=== PATIENT | male | born 1990 | race Caucasian/White ===

== ENCOUNTER 2016-11-16 10:38 | Emergency (ER) | payer BC ==
[~2016-11-16] VITALS: Ht 167.6 cm; Wt 73.5 kg
[~2016-11-16 10:38] MED LIST: HYDR-3498 PO; IBUP800T25 PO
[2016-11-16 10:42] VITALS: Ht 167.6 cm; Wt 73.5 kg
[2016-11-16] MEDS ORDERED: BEN25 PO (10:53)
[2016-11-16] MEDS ORDERED: PRED20TA PO (10:53)
[2016-11-16] MEDS ORDERED: CEPH-443 PO (10:53)
[2016-11-16] MEDS ORDERED: DIPHENHYDRAMINE 25 MG CAP PO ONE (11:00)
[2016-11-16] MEDS ORDERED: predniSONE 20 MG TAB PO ONE (11:00)
[2016-11-16] MEDS ORDERED: CEPHALEXIN 500 MG CAP PO ONE (11:00)
--- NOTE | 2016-11-16 11:01 | ERD ---
ER Documentation Chief Complaint Date/Time DATE: 11/16/16 TIME: 10:57 Chief Complaint bee sting HPI 26 yo male comes in with bee sting on the left for that occurred 2 days ago comes in with swelling and redness around the left eye. Patient states he was sent 2 days ago, he has been seen in the past without any complications. He denies any pain, blurred vision or redness to the eye or drainage to the eye. Denies trauma. No fevers or chills. He denies shortness of breath, chest pain. ROS All systems reviewed and are negative except as per history of present illness. Medications Home Meds Active Scripts Prednisone* (Prednisone*) 20 Mg Tab, 40 MG PO DAILY for 4 Days, TAB Prov:ABDULLAHI LUCIANO PA-C 11/16/16 Cephalexin* (Keflex*) 500 Mg Capsule, 500 MG PO QID for 5 Days, CAP Prov:ABDULLAHI LUCIANO PA-C 11/16/16 Diphenhydramine Hcl* (Benadryl*) 25 Mg Cap, 25 MG PO Q6, #30 CAP Prov:ABDULLAHI LUCIANO PA-C 11/16/16 Hydrocodone Bit-Acetaminophen* (Pray*) 5-325 Mg Tab, 1 TAB PO Q6 Y for SEVERE PAIN LEVEL 7-10, #7 TAB Prov:LORRAINE SAXENA [employer]ICER 02/27/15 Ibuprofen* (Motrin*) 800 Mg Tab, 800 MG PO Q6H Y for PAIN AND OR ELEVATED TEMP, #30 TAB Prov:LORRAINE SAXENA. [employer]ATIONS OFFICER 02/27/15 Reported Medications [None] No Conflict Check 08/24/09 Allergies Allergies: Coded Allergies: No Known Allergy (Verified , 05/27/11) PMhx/Soc History of Surgery: No Anesthesia Reaction: No Hx Neurological Disorder: No Hx Respiratory Disorders: Yes (Asthma) Hx Cardiac Disorders: No Hx Psychiatric Problems: No Hx Miscellaneous Medical Probl: No Hx Alcohol Use: Yes Hx Substance Use: Yes (marijuana and cocaine) Hx Tobacco Use: Yes Smoking Status: Current some day smoker Physical Exam Vitals Vital Signs Date Time Temp Pulse Resp B/P Pulse Ox O2 Delivery O2 Flow Rate FiO2 11/16/16 10:42 97.9 104 20 137/64 96 Physical Exam General: Well-developed, well-nourished. The patient appears in no acute distress. HEENT: Head is normocephalic, atraumatic. No scleral icterus. No injection to the eyes, eyes are Arpit, extraocular movements intact without any pain, no photophobia on examination. There is swelling above and below the eye, and the eyelids, there is erythema, there is no tenderness to palpation, no fluctuance. There is a stating that can be seen above the left eyebrow. No cellulitis. No vesicles. Neck: Supple. Nontender. Lungs: Clear to auscultation. Normal air movement. Heart: Regular rate and rhythm. S1 and S2 are normal. No murmurs, gallops, or rubs. Abdomen: Nontender. Extremities: No clubbing or cyanosis. Normal pulses. Moving extremities x 4. No weakness. Neurologic: Alert and oriented 3. No focal deficits. Skin: Normal turgor. No rash or lesions. Results 24 hrs Current Medications Medications (Trade) Dose Ordered Sig/Dulce Route PRN Reason Start Time Stop Time Status Last Admin Dose Admin Prednisone (Prednisone) 40 mg ONCE ONCE PO 11/16/16 11:00 11/16/16 11:01 Diphenhydramine HCl (Benadryl) 25 mg ONCE ONCE PO 11/16/16 11:00 11/16/16 11:01 Cephalexin (Keflex) 500 mg ONCE ONCE PO 11/16/16 11:00 11/16/16 11:01 Procedures/MDM 26-year-old male comes emergency with a bee sting of the left, there is some periorbital swelling however no pain, no fluctuance. No signs of orbital periorbital cellulitis. This is likely reactive from the sting. However due to the location erythema, this may be an early infection patient will be treated with Keflex. He was given prednisone as well as Benadryl emergency department is to continue at home. He is to recheck the area in 2 days. Other differentials include an orbital blowout fracture, conjunctivitis, entrapment, anaphylaxis, however unlikely. Departure Diagnosis: Primary Impression: Bee sting Condition: Good Patient Instructions: Insect Bites and Stings Additional Instructions: Call your primary care doctor TOMORROW for an appointment during the next 1-2 days.See the doctor sooner or return here if your condition worsens before your appointment time. ABDULLAHI LUCIANO PA-C Nov 16, 2016 11:01
[2016-11-16 11:06] VITALS: BP 118/66; PULSE 97; RESP 19; TEMP 98.3
== END 2016-11-16 11:08 | disposition home or self-care (01) ==
LOC: FTE 10:38
DX: T63.441A Toxic effect of venom of bees, accidental (unintentional), initial encounter (principal); J45.909 Unspecified asthma, uncomplicated; F17.210 Nicotine dependence, cigarettes, uncomplicated
CPT/HCPCS: J7512; Z7502; Z7610; 99284

== ENCOUNTER 2018-06-30 09:44 | Emergency (ER) | payer BC ==
[~2018-06-30] VITALS: Ht 167.6 cm; Wt 65.0 kg
[~2018-06-30 09:44] MED LIST changes: +BEN25 PO; +CEPH-443 PO; -IBUP800T25 PO; +IBUP800T48 PO; +PRED20TA PO
[2018-06-30 09:55] VITALS: Ht 167.6 cm; Wt 65.0 kg
--- NOTE | 2018-06-30 10:05 | ERD ---
ER Documentation Chief Complaint Chief Complaint BIB [facility] FOR EVAL OF DRUG USE COCAINE AND HYDROXAZINE. HPI 27-year-old male presents to the ED via rescue ambulance for evaluation of multidrug abuse. Patient mother was concerned regarding patient's drug use and called 911. Patient admits to binge cocaine/methamphetamine use last night. Patient reports he had trouble falling asleep and then took an unknown number of hydroxyzine pills and 1 of his grandmother sleeping pills which he cannot identify. He complains of feeling anxious but vehemently denies thoughts of hurting himself or others. No visual auditory hallucinations. Denies chest pain or palpitations. No shortness of breath, cough or hemoptysis. Denies headache, neck pain, visual changes, focal weakness or numbness. No skin rash. No fevers or chills. ROS All systems reviewed and are negative except as per history of present illness. Medications Home Meds Discontinued Reported Medications [None] No Conflict Check 08/24/09 Discontinued Scripts Prednisone* (Prednisone*) 20 Mg Tab, 40 MG PO DAILY for 4 Days, TAB Prov:ABDULLAHI LUCIANO PA-C 11/16/16 Cephalexin* (Keflex*) 500 Mg Capsule, 500 MG PO QID for 5 Days, CAP Prov:ABDULLAHI LUCIANO PA-C 11/16/16 Diphenhydramine Hcl* (Benadryl*) 25 Mg Cap, 25 MG PO Q6, #30 CAP Prov:ABDULLAHI LUCIANO PA-C 11/16/16 Hydrocodone Bit-Acetaminophen* (Hollis*) 5-325 Mg Tab, 1 TAB PO Q6 PRN for SEVERE PAIN LEVEL 7-10, #7 TAB Prov:LORRAINE SAXENA. [employer]NS[employer] 02/27/15 Ibuprofen* (Motrin*) 800 Mg Tab, 800 MG PO Q6H PRN for PAIN AND OR ELEVATED TEMP, #30 TAB Prov:LORRAINE SAXENA. [employer]NS[employer] 02/27/15 Allergies Allergies: Coded Allergies: No Known Allergy (Verified , 05/27/11) PMhx/Soc History of Surgery: No Anesthesia Reaction: No Hx Neurological Disorder: No Hx Respiratory Disorders: Yes (Asthma) Hx Cardiac Disorders: No Hx Psychiatric Problems: No Hx Miscellaneous Medical Probl: No Hx Alcohol Use: Yes Hx Substance Use: Yes (marijuana and cocaine) Hx Tobacco Use: Yes Smoking Status: Current every day smoker FmHx No depression, sudden cardiac or cancer Physical Exam Vitals Vital Signs Date Temp Pulse Resp B/P (MAP) Pulse Ox O2 O2 Flow FiO2 Time Delivery Rate 06/30/18 107 20 145/88 100 Room Air 13:34 (107) 06/30/18 97.3 133 20 133/100 100 Room Air 11:41 (111) 06/30/18 97.2 123 20 140/99 97 09:55 (113) Physical Exam Const: Moderate distress, anxious Head: Atraumatic Eyes: Normal Conjunctiva ENT: Normal External Ears, Nose and Mouth. Neck: Full range of motion. No meningismus. Resp: Breath sounds are equal and clear to auscultation bilaterally Cardio: Tachycardic. Regular rate and rhythm, no murmurs Abd: Soft, non tender, non distended. Normal bowel sounds Skin: No petechiae or rashes Back: No midline or flank tenderness Ext: No cyanosis, or edema Neur: Awake and alert. No focal deficit Psych: Anxious but not depressed. Cooperative. Denies visual auditory hallucinations. No suicidal or homicidal ideations. Result Diagram: 06/30/1895706/30/1858 Results 24 hrs Laboratory Tests Test 06/30/18 09:58 06/30/18 10:35 White Blood Count 11.2 10^3/ul Red Blood Count 5.16 10^6/ul Hemoglobin 15.5 g/dl Hematocrit 45.3 % Mean Corpuscular Volume 87.8 fl Mean Corpuscular Hemoglobin 30.0 pg Mean Corpuscular Hemoglobin Concent 34.2 g/dl Red Cell Distribution Width 12.2 % Platelet Count 271 10^3/UL Mean Platelet Volume 9.4 fl Immature Granulocytes % 0.400 % Neutrophils % 74.5 % Lymphocytes % 14.2 % Monocytes % 10.5 % Eosinophils % 0.0 % Basophils % 0.4 % Nucleated Red Blood Cells % 0.0 /100WBC Immature Granulocytes # 0.040 10^3/ul Neutrophils # 8.4 10^3/ul Lymphocytes # 1.6 10^3/ul Monocytes # 1.2 10^3/ul Eosinophils # 0.0 10^3/ul Basophils # 0.1 10^3/ul Nucleated Red Blood Cells # 0.0 10^3/ul Sodium Level 140 mmol/L Potassium Level 3.4 mmol/L Chloride Level 100 mmol/L Carbon Dioxide Level 28 mmol/L Anion Gap 12 Blood Urea Nitrogen 11 mg/dl Creatinine 0.94 mg/dl Est Glomerular Filtrat Rate mL/min > 60 mL/min Glucose Level 96 mg/dl Calcium Level 10.0 mg/dl Total Bilirubin 1.1 mg/dl Direct Bilirubin 0.00 mg/dl Indirect Bilirubin 1.1 mg/dl Aspartate Amino Transf (AST/SGOT) 121 IU/L Alanine Aminotransferase (ALT/SGPT) 29 IU/L Alkaline Phosphatase 138 IU/L Total Protein 8.3 g/dl Albumin 5.0 g/dl Globulin 3.30 g/dl Albumin/Globulin Ratio 1.51 Salicylates Level < 1.0 mg/dl Acetaminophen Level < 10.0 ug/ml Ethyl Alcohol Level < 10.0 mg/dl Urine Opiates Screen Negative Urine Barbiturates Negative Urine Amphetamines Screen POSITIVE Urine Benzodiazepines Screen Negative Urine Cocaine Screen Negative Urine Cannabinoids Negative Current Medications Medications Dose Sig/Dulce Start Time Status Last (Trade) Ordered Route PRN Stop Time Admin Dose Reason Admin Sodium 1,000 ml @ Q1H STAT 06/30/18 DC 06/30/18 Chloride 1,000 mls/hr IV 10:23 10:40 06/30/18 11:22 Lorazepam 1 mg ONCE STAT 06/30/18 DC 06/30/18 (Ativan) IV 10:23 10:40 06/30/18 10:24 Potassium 40 meq ONCE STAT 06/30/18 DC 06/30/18 Chloride PO 11:18 11:34 (Klor-Con 20) 06/30/18 11:19 Lorazepam 1 mg ONCE ONCE 06/30/18 DC 06/30/18 (Ativan) IV 11:30 11:35 06/30/18 11:31 Procedures/MDM DOCUMENTS REVIEWED: ED nurse, EMS report, prior ED records EKG: Time: 1035. Sinus tachycardia. Ventricular rate 103. Normal CO and QRS. Incomplete right bundle branch block. No acute ST segment elevation or depression. No ectopy. My Interpretation REEXAMINATION/REEVALUATION: Time: 14:45. Improved. Asymptomatic and wants to be discharged. Heart rate 98. [employer]ICAL DECISION MAKIN-year-old male presents to the ED via rescue ambulance for evaluation of multidrug abuse. Patient admits to cocaine/methamphetamine abuse and an unknown number of hydroxyzine tablets and an unknown sleeping pill to go to sleep but vehemently denies hallucinations, suicidal or homicidal ideations. Sinus tachycardia likely secondary to a combination of stimulant abuse and anticholinergic effect from hydroxyzine resolved with intravenous hydration and anxiolysis with lorazepam. Mild hypokalemia replaced orally. surgical services director consult obtained, refer to her note. Stable for discharge with precautionary instructions and outpatient follow-up as counseled. Counseled patient regarding diagnostic workup, diagnosis and need for followup. Drug cessation counseling provided and patient referred to Narcotics Anonymous. Understands to return to ED if symptoms recur, worsen or any other concerns. Departure Diagnosis: Primary Impression: Methamphetamine abuse Additional Impression: Anticholinergic drug overdose Encounter type: initial encounter Injury intent: accidental or unintentional Qualified Codes: T44.3X1A - Poisoning by other parasympatholytics [anticholinergics and antimuscarinics] and spasmolytics, accidental (unintentional), initial encounter FREDO MOSES MD Jun 30, 2018 10:05
[2018-06-30] MEDS ORDERED: LORAZEPAM 2 MG INJ IV STA (10:23)
[2018-06-30] MEDS ORDERED: SOD CHLORIDE 0.9% 1,000 ML IV STA (10:23)
[2018-06-30] MEDS ORDERED: POTASSIUM CHLORIDE (SR) 20 MEQ TAB PO STA (11:18)
[2018-06-30] MEDS ORDERED: LORAZEPAM 2 MG INJ IV ONE (11:30)
[2018-06-30 14:49] VITALS: BP 132/82; PULSE 98; RESP 19
== END 2018-06-30 15:10 | disposition home or self-care (01) ==
LOC: E/R 09:44 → CANBEDREQ 10:10 → E/R 15:10
DX: F15.10 Other stimulant abuse, uncomplicated (principal); T44.3X1A Poisoning by other parasympatholytics [anticholinergics and antimuscarinics] and spasmolytics, accidental (unintentional), initial encounter; J45.909 Unspecified asthma, uncomplicated; F17.210 Nicotine dependence, cigarettes, uncomplicated
CPT/HCPCS: 36415; 80053; 80306; 80307; 85025; 93005; 96374; 96376; 99284; J2060; J7030; Z7610

== ENCOUNTER 2018-08-23 00:35 | Emergency (ER) | payer BC ==
[~2018-08-23] VITALS: Ht 172.7 cm; Wt 64.0 kg
[2018-08-23 00:37] VITALS: BP 115/75; PULSE 61; RESP 20; Ht 172.7 cm; Wt 64.0 kg
--- NOTE | 2018-08-23 03:31 | ERD ---
ER Documentation Chief Complaint Chief Complaint LEFT KNEE PAIN 8/10 X TODAY HPI 28-year-old male, presents the emergency department, complaining of acute onset of left knee pain that started today, after hitting his knee with a solid object. The pain is dull, constant, 4/10. ROS All systems reviewed and are negative except as per history of present illness. Medications Home Meds Active Scripts Ibuprofen* (Motrin*) 400 Mg Tab, 400 MG PO Q8, #15 TAB Prov:ALEXEI HUDDLESTON MD 08/23/18 Acetaminophen* (Tylenol*) 325 Mg Tablet, 2 TAB PO Q8 PRN for PAIN AND OR ELEVATED TEMP, #20 TAB Prov:ALEXEI HUDDLESTON MD 08/23/18 Allergies Allergies: Coded Allergies: No Known Allergy (Verified , 05/27/11) PMhx/Soc History of Surgery: No Anesthesia Reaction: No Hx Neurological Disorder: No Hx Respiratory Disorders: Yes (Asthma) Hx Cardiac Disorders: No Hx Psychiatric Problems: No Hx Miscellaneous Medical Probl: No Hx Alcohol Use: Yes Hx Substance Use: Yes (marijuana and cocaine) Hx Tobacco Use: Yes Physical Exam Vitals Vital Signs Date Temp Pulse Resp B/P (MAP) Pulse Ox O2 O2 Flow FiO2 Time Delivery Rate 08/23/18 97.2 61 20 115/75 99 00:37 (88) Physical Exam Const: No acute distress Head: Atraumatic Eyes: Normal Conjunctiva ENT: Normal External Ears, Nose and Mouth. Neck: Full range of motion. No meningismus. Resp: Clear to auscultation bilaterally Cardio: Regular rate and rhythm, no murmurs Abd: Soft, non tender, non distended. Normal bowel sounds Skin: No petechiae or rashes Back: No midline or flank tenderness Ext: Left knee: Normal inspection, no crepitus, no edema, erythema or warmth. Full range of motion. Distal neurovascular exam intact Neur: Awake and alert Psych: Normal Mood and Affect Procedures/MDM Acute left knee pain: no red flags. Differential diagnosis include but not limited to: Knee contusion, meniscus injury, tendon/ligament injury, arthritis; low suspicion for fracture, dislocation, septic arthritis. Neurovascular exam grossly intact. no clinical findings suggestive of acute infectious process, no acute deformity, no edema, no rashes. Physical examination and clinical presentation consistent most likely with acute knee contusion. Results and clinical impression discussed with the patient who agrees with management. The patient is stable to be treated outpatient and will be discharged home with recommendations for ice, rest, NSAIDs 3 times daily for 5 days and close monitoring. The patient was instructed to follow up with the primary care provider in the next 48h. If symptoms persist, worsen or new symptoms develop, then patient should return to the ED immediately. Instructions explained and given to patient with acknowledgment and demonstrated understanding. Disclaimer: Inadvertent spelling and grammatical errors are likely due to E HR/dictation software use and do not reflect on the overall quality of patient care. Also, please note that the electronic time recorded on this note does not necessarily reflect the actual time of the patient encounter. Departure Diagnosis: Primary Impression: Contusion of left knee Condition: Stable Patient Instructions: Contusion, Lower Extremity Additional Instructions: Thank you very much for allowing us to participate in your care. Your health and safety is our top priority at [facility]. Call your primary care doctor TOMORROW for an appointment during the next 2-4 days and bring all the information and medications prescribed. Have prescriptions filled and follow precisely the directions on the label. If the symptoms get worse and your provider is unavailable, return to the Emergency Department immediately. ALEXEI HUDDLESTON MD Aug 23, 2018 03:31
[2018-08-23] MEDS ORDERED: ACET325T33 PO (03:40)
[2018-08-23] MEDS ORDERED: IBUP-1561 PO (03:40)
== END 2018-08-23 04:10 | disposition home or self-care (01) ==
LOC: FTE 00:35
DX: S80.02XA Contusion of left knee, initial encounter (principal); J45.909 Unspecified asthma, uncomplicated; W22.8XXA Striking against or struck by other objects, initial encounter; Y92.9 Unspecified place or not applicable; Z87.891 Personal history of nicotine dependence
CPT/HCPCS: 99282